=== PATIENT | female | born 1970 | race Caucasian/White ===

== ENCOUNTER → 2016-06-28 | Outpatient (CLI) | payer OTHER | END | disposition disaster alternative care site (69) | LOC: GRAD 11:57 → EDBD 11:57 → GRAD 12:00 | PROC: BP39Y0Z Magnetic Resonance Imaging (MRI) of Left Shoulder using Other Contrast, Unenhanced and Enhanced (ICD-10-PCS; principal; 2016-06-28) | DX: S46.012D Strain of muscle(s) and tendon(s) of the rotator cuff of left shoulder, subsequent encounter (principal); S43.431D Superior glenoid labrum lesion of right shoulder, subsequent encounter; M85.612 Other cyst of bone, left shoulder; W19.XXXD Unspecified fall, subsequent encounter ==